=== PATIENT | male | born 1995 | race Caucasian/White ===

== ENCOUNTER 2022-11-11 03:20 | Day surgery (SDC) | payer OTHER ==
[~2022-11-11 03:20] MED LIST: AMOCLA875 PO; Aspir 8181 MG PO; MIRALAX17 GM PO; PROBIOTIC1 EA13 PO; Percocet 5-3251 EACH PO
== END 2022-11-11 23:00 | disposition home or self-care (01) ==
LOC: WOUND 03:20
DX: T81.31XA Disruption of external operation (surgical) wound, not elsewhere classified, initial encounter (principal); Y83.8 Other surgical procedures as the cause of abnormal reaction of the patient, or of later complication, without mention of misadventure at the time of the procedure; S82.64XD Nondisplaced fracture of lateral malleolus of right fibula, subsequent encounter for closed fracture with routine healing; V86.95XD Unspecified occupant of 3- or 4- wheeled all-terrain vehicle (ATV) injured in nontraffic accident, subsequent encounter; R60.0 Localized edema
CPT/HCPCS: G0463